=== PATIENT | male | born 1955 | race Caucasian/White ===

== ENCOUNTER 2019-02-23 06:54 | Day surgery (SDC) | payer BC, OTHER ==
[~2019-02-23] VITALS: Ht 157.5 cm; Wt 63.4 kg
[2019-02-23] MEDS ORDERED: AMLODIPINE (07:59)
[2019-02-23] MEDS ORDERED: ATORVASTATIN (07:59)
[2019-02-23 08:03] VITALS: Ht 157.5 cm; Wt 63.4 kg
[2019-02-23 08:16] VITALS: BP 158/91; PULSE 72; RESP 13
[2019-02-23 09:15] VITALS: BP 116/80; PULSE 64; RESP 20
[2019-02-23 09:19] VITALS: BP 125/78; PULSE 69; RESP 20
[2019-02-23] MEDS ORDERED: FENTAnyl 50 MCG/ML VIAL ONE (09:23)
[2019-02-23] MEDS ORDERED: MIDAZOLAM 1 MG/ML 2 ML INJ ONE ×2 (09:23)
[2019-02-23 09:24] VITALS: BP 130/84; PULSE 68; RESP 18
== END 2019-02-23 15:55 | disposition home or self-care (01) ==
LOC: GIL 06:54
PROVIDERS: ATTEND Internal Medicine Gastroenterology
DX: Z12.11 Encounter for screening for malignant neoplasm of colon (principal); K29.30 Chronic superficial gastritis without bleeding; K64.8 Other hemorrhoids; K44.9 Diaphragmatic hernia without obstruction or gangrene; K21.9 Gastro-esophageal reflux disease without esophagitis; I10 Essential (primary) hypertension
CPT/HCPCS: 43239; 45378; 88305; 88312; J2250; J3010; Z7610